=== PATIENT | female | born 1960 | race American Indian/Alaskan Native ===

== ENCOUNTER 2018-12-02 08:54 | Inpatient (IN) | payer OTHER ==
[2018-12-02 10:19] LABS: Basophils % (Auto) 1.2 % (0.0-1.8); Eosinophils % (Auto) 0.9 % (0.0-4.3); Hemoglobin 12.4 gm/dl (10.1-14.3); Lymphocytes # (Auto) 0.8 K/mm3 (1.2-5.4); Lymphocytes % (Auto) 22.4 % (13.4-35.0); Mean Corpuscular HGB Conc 34 % (30-34); Mean Corpuscular Volume 84 fl (79-97); Monocytes # (Auto) 0.3 K/mm3 (0.0-0.8); Monocytes % (Auto) 9.6 % (0.0-7.3); Platelet Count 169 K/mm3 (140-440); Red Blood Count 4.41 M/mm3 (3.65-5.03); Red Cell Distribution Width 13.4 % (13.2-15.2)
[2018-12-02] MEDS ORDERED: IBUPROFEN PO ONE (10:20)
--- NOTE | 2018-12-02 10:22 | XRay Report ---
AP CHEST: HISTORY: Hypertension, syncope AP view of the chest demonstrates a normal mediastinal and cardiac contour with clear lungs and normal bony and soft tissue structures. IMPRESSION: Unremarkable AP chest.
--- NOTE | 2018-12-02 10:26 | Emergency Department Report ---
ED Syncope HPI - General Chief Complaint: Syncope Stated Complaint: SYNCOPY/MH Time Seen by Provider: 12/02/18 08:58 - History of Present Illness Initial Comments: Mrs. Ramachandran is a 58 yo female with hx of HTN, NIDDM, and dyslipidemia who presents with a syncopal episode. 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. She was in the medical transport vehicle front seat. The special client bus driver observed the fainting episode after she sneezed. She passed out for several minutes with urinary incontinence. She does not remember the episode. No hx of syncope or seizure. No hx of cardiac disease. She reported the bi developer stated that her lower heart was beating fast. This morning she was in her normal state of health without illness. Now she has headache frontal. PCP Dr. Cinthia Blackwood Medictions: Metformin Lisinopril Hydrochlorothiazide Lipitor - Related Data Allergies/Adverse Reactions: Allergies No Known Allergies Allergy (Unverified 03/21/15 12:51) ED Review of Systems ROS: Stated complaint: SYNCOPY/MH Other details as noted in HPI Comment: All other systems reviewed and negative Constitutional: denies: fever, malaise Respiratory: denies: cough Cardiovascular: denies: chest pain, palpitations ED Past Medical Hx - Past Medical History Previous Medical History?: Yes Hx Hypertension: Yes Hx Diabetes: Yes Additional medical history: high cholesterol - Surgical History Hx Breast Surgery: Yes (partial hysterectomy/ lump removal) - Family History Family history: diabetes, other (family history of heart disease) - Social History Smoking Status: Current Every Day Smoker Substance Use Type: Alcohol ED Physical Exam - General Limitations: No Limitations General appearance: alert, in no apparent distress - Head Head exam: Present: atraumatic, normocephalic - Eye Eye exam: Present: normal appearance - ENT ENT exam: Present: mucous membranes moist - Neck Neck exam: Present: normal inspection, full ROM - Respiratory Respiratory exam: Present: normal lung sounds bilaterally. Absent: respiratory distress, wheezes, rales, rhonchi - Cardiovascular Cardiovascular Exam: Present: regular rate, normal rhythm, normal heart sounds. Absent: systolic murmur, diastolic murmur, rubs, gallop - GI/Abdominal GI/Abdominal exam: Present: soft, normal bowel sounds. Absent: distended, tenderness - Extremities Exam Extremities exam: Present: normal inspection - Back Exam Back exam: Present: normal inspection - Neurological Exam Neurological exam: Present: alert, oriented X3, CN II-XII intact, normal gait. Absent: motor sensory deficit - Psychiatric Psychiatric exam: Present: normal affect, normal mood - Skin Skin exam: Present: warm, dry, intact, normal color. Absent: rash ED Course Vital Signs 12/02/18 12/02/18 12/02/18 09:03 09:04 09:05 Temperature 98.7 F Pulse Rate 75 Blood Pressure 143/81 O2 Sat by Pulse 99 99 Oximetry ED Medical Decision Making - Lab Data Result diagrams: 12/02/18 10:04 12/02/18 10:04 Laboratory Results - last 24 hr 12/02/18 12/02/18 12/02/18 10:04 10:04 10:04 WBC 3.4 L RBC 4.41 Hgb 12.4 Hct 37.0 MCV 84 MCH 28 MCHC 34 RDW 13.4 Plt Count 169 Lymph % (Auto) 22.4 [place] % (Auto) 9.6 H Eos % (Auto) 0.9 Baso % (Auto) 1.2 Lymph # 0.8 L [place] # 0.3 Eos # 0.0 Baso # 0.0 Seg Neutrophils % 65.9 Seg Neutrophils # 2.2 D-Dimer 162.00 Sodium 140 Potassium 3.9 Chloride 102.4 Carbon Dioxide 27 Anion Gap 15 BUN 7 Creatinine 0.7 Estimated GFR > 60 BUN/Creatinine Ratio 10 Glucose 77 Calcium 9.3 Magnesium 2.20 Total Bilirubin 0.30 AST 22 ALT 16 Alkaline Phosphatase 46 Troponin T < 0.010 Total Protein 7.1 Albumin 4.2 Albumin/Globulin Ratio 1.4 - EKG Data EKG shows normal: sinus rhythm, axis, intervals, QRS complexes, ST-T waves Rate: normal - Radiology Data Radiology results: report reviewed CXR: one view NAP - Medical Decision Making Mrs. Ramachandran is a 58 yo female with witnessed syncope and urinary incontinence. DDX: arrhythmia, seizure, vasovagal syndrome Negative d-dimer, normal EKG, normal Hct Admitted to hospitalist service for further treatment and evaluation Critical care attestation.: If time is entered above; I have spent that time in minutes in the direct care of this critically ill patient, excluding procedure time. ED Disposition Clinical Impression: Syncope Disposition: OP ADMIT IP TO THIS HOSP Is pt being admited?: Yes Does the pt Need Aspirin: Yes Condition: Stable Instructions: Syncope (ED)
[2018-12-02 10:33] LABS: Alanine Aminotransferase 16 units/L (7-56); Albumin 4.2 g/dL (3.9-5); BUN/Creatinine Ratio 10; Blood Urea Nitrogen 7 mg/dL (7-17); Calcium 9.3 mg/dL (8.4-10.2); Hemolysis Index 12
[2018-12-02] MEDS ORDERED: BABY ASPIRIN PO ONE (12:58)
--- NOTE | 2018-12-02 13:25 | History and Physical Report ---
History of Present Illness Chief complaint: I just passed out History of present illness: 58 YO Female with HTN, DM, HLD, Nicotine Dependence presents to ED for evaluation. Pt states that she was in her usual state of health while at work. Pt was in a medical transport vehicle as a passenger when she suddenly lost con sciousness. The regional driver/witness reports that patient lost consciousness after she sneezed and was out for several minutes with loss of urinary incontinence. Pt does not remember the episode. EMS notified, and patient transported to [facility]. Pt seen and evaluated in ED and found to have Syncope, as well as symptoms consistent with Diastolic CHF. Pt acknowledges decreased exercise tolerance, and shortness of breath with exertion over the past 2 months, and well as family history of cardiac disease. Pt admitted to telemetry. Pt denies fever, chills, CP, Palpitations, NVD, Trauma, Prolonged travel/immobility, Individual/family history of DVT/PE/Blood Clotting Disorders, Vertigo, Skin Rash, or recent ill contacts. Pt has no prior inpatient admissions at [facility]. All listed medication reconciled at admission. PCP Dr. Cinthia Blackwood Past History Past Medical History: diabetes, hypertension, hyperlipidemia Past Surgical History: hysterectomy Social history: , lives with family, smoking Family history: CAD, hypertension Medications and Allergies Allergies Allergy/AdvReac Type Severity Reaction Status Date / Time No Known Allergies Allergy Unverified 03/21/15 12:51 Review of Systems Constitutional: no weight loss, no weight gain, no fever, no chills Ears, nose, mouth and throat: no ear pain, no ear discharge, no tinnitis, no decreased hearing, no nose pain Breasts: no change in shape, no swelling, no mass Cardiovascular: syncope, dyspnea on exertion, decreased exercise tolerance, no chest pain, no orthopnea, no palpitations, no rapid/irregular heart beat, no edema Respiratory: no cough, no cough with sputum, no excessive sputum, no hemoptysis Gastrointestinal: no nausea, no vomiting, no diarrhea, no constipation Genitourinary Female: no pelvic pain, no flank pain, no menorrhagia, no dysuria Rectal: no pain, no incontinence, no bleeding Musculoskeletal: no neck stiffness, no neck pain, no shooting arm pain, no arm numbness/tingling, no low back pain, no shooting leg pain Integumentary: no rash, no pruritis, no redness, no sores, no wounds Neurological: no transient paralysis, no paralysis, no weakness, no parathesias, no numbness, no lack of coordination Psychiatric: no anxiety, no memory loss, no change in sleep habits Endocrine: no cold intolerance, no heat intolerance, no polyphagia, no excessive thirst, no polydipsia, no polyuria Hematologic/Lymphatic: no easy bruising, no easy bleeding, no lymphedema Allergic/Immunologic: no urticaria, no allergic rhinitis, no wheezing, no anaphylaxis, no angioedema Exam - Constitutional Vitals: Temp Pulse Resp BP Pulse Ox 98.7 F 75 143/81 99 12/02/18 09:05 12/02/18 09:05 12/02/18 09:04 12/02/18 09:04 General appearance: Present: no acute distress, well-nourished - EENT Eyes: Present: PERRL ENT: hearing intact, clear oral mucosa - Neck Neck: Present: supple, normal ROM - Respiratory Respiratory effort: normal Respiratory: bilateral: CTA - Cardiovascular Heart Sounds: Present: S1 & S2. Absent: rub, click - Extremities Extremities: pulses symmetrical, No edema Peripheral Pulses: within normal limits - Abdominal General gastrointestinal: Present: soft, non-tender, non-distended, normal bowel sounds Female genitourinary: Present: normal - Integumentary Integumentary: Present: clear, warm, dry - Musculoskeletal Musculoskeletal: gait normal, strength equal bilaterally - Psychiatric Psychiatric: appropriate mood/affect, intact judgment & insight - Neurologic Neurologic: CNII-XII intact, moves all extremities Results - Labs CBC & Chem 7: 12/02/18 10:04 12/02/18 10:04 Labs: Abnormal lab results 12/02/18 Range/Units 10:04 WBC 3.4 L (4.5-11.0) K/mm3 [place] % (Auto) 9.6 H (0.0-7.3) % Lymph # 0.8 L (1.2-5.4) K/mm3 Assessment and Plan - Patient Problems (1) Diastolic CHF Current Visit: Yes Status: Suspected Qualifiers: Heart failure chronicity: acute Qualified Code(s): I50.31 - Acute diastolic (congestive) heart failure Plan to address problem: Admit to telemetry: Cardiac enzymes, serial EKG, strict I/O, daily weight, monitor uop q shift, telemetry monitoring to evaluate for arrhythmia or evidence of sick sinus syndrome, BNP, D dimer to assess for possible PE, Echo ordered to evaluate for suspected CHF/Cardiomyopathy. Echo is pending. (2) HTN (hypertension) Current Visit: Yes Status: Acute Qualifiers: Hypertension type: essential hypertension Qualified Code(s): I10 - Essential (primary) hypertension Plan to address problem: Monitor bp q shift, continue medical management. (3) HLD (hyperlipidemia) Current Visit: Yes Status: Acute Qualifiers: Hyperlipidemia type: mixed hyperlipidemia Qualified Code(s): E78.2 - Mixed hyperlipidemia Plan to address problem: lipid panel, statin therapy, (4) Diabetes Current Visit: Yes Status: Acute Plan to address problem: Discontinue oral antihyperglycemic medication, sliding scale insulin, ADA diet, accu check (5) Syncope Current Visit: Yes Status: Acute Qualifiers: Encounter type: initial encounter Plan to address problem: Admit to telemetry, Carotid doppler to evaluate for carotid stenosis, EEG to evaluate for evidence of new onset seizure. (6) DVT prophylaxis Current Visit: Yes Status: Acute Plan to address problem: SCD to BLE while in bed.
[2018-12-02] MEDS ORDERED: ZOFRAN IV PRN (13:27)
[2018-12-02] MEDS ORDERED: SODIUM CHLORIDE FLUSH SYRINGE 10 ML IV PRN (13:27)
[2018-12-02] MEDS ORDERED: TYLENOL PO PRN (13:27)
[2018-12-02] MEDS ORDERED: D50W (25GM) Syringe IV PRN (14:11)
[2018-12-02] MEDS ORDERED: APRESOLINE IV PRN (14:11)
--- NOTE | 2018-12-02 15:41 | Vascular Lab Report ---
PROCEDURE: VL CAROTID DUPLEX BILAT TECHNIQUE: Duplex Doppler ultrasound of the common, internal and external carotid arteries and the v ertebral arteries was performed bilaterally. Lewis scale imaging, velocity spectral waveform analysis, and color flow Doppler were employed. HISTORY: syncope COMPARISONS: None . Note: Measurement of carotid stenosis is based on flow velocity values that correlate with the [place] Symptomatic Carotid Endarterectomy Trial (NASCET) based stenosis criteria using the internal carotid artery diameter as the denominator for stenosis calculation. FINDINGS: RIGHT carotid artery: Velocities: ICA PSV: 106 cm/sec ICA End diastolic: 38 cm/sec CCA PSV: 160 cm/sec IC/CC ratio: 0. 66 Plaque/color flow: Mild heterogeneous plaque without significant spectral broadening or abnormal col or flow . RIGHT vertebral artery: Antegrade systolic and diastolic flow LEFT carotid artery: Velocities: ICA PSV: 101 cm/sec ICA End diastolic: 32 cm/sec CCA PSV: 125 cm/sec IC/CC ratio: 0. 81 Plaque/color flow: Mild heterogeneous plaque without significant spectral broadening or abnormal col or flow . LEFT vertebral artery: Antegrade systolic and diastolic flow IMPRESSION: 1. RIGHT carotid: No hemodynamically significant (less than 50 percent) internal carotid artery ana nosis. 2. LEFT carotid: No hemodynamically significant (less than 50 percent) internal carotid artery sten osis. 3. Vertebral arteries: Bilaterally antegrade. This document is electronically signed by Rima Hooper., December 02 2018 03:38:52 PM ET
[2018-12-02] MEDS: HumaLOG SUB-Q SCH (18:45)
[2018-12-02] MEDS ORDERED: HCTZ PO SCH (19:00)
[2018-12-02] MEDS ORDERED: ZESTRIL PO SCH (19:00)
[2018-12-02] MEDS ORDERED: SODIUM CHLORIDE FLUSH SYRINGE 10 ML IV SCH (22:00)
[2018-12-03 06:21] LABS: BUN/Creatinine Ratio 17; Blood Urea Nitrogen 12 mg/dL (7-17); Hemolysis Index 4
[2018-12-03] MEDS: HumaLOG SUB-Q SCH (09:50)
[2018-12-03] MEDS ORDERED: CLARITIN PO SCH (10:00)
[2018-12-03] MEDS ORDERED: HALFPRIN EC PO SCH (10:00)
[2018-12-03] MEDS ORDERED: NON-FORMULARY (Lisinopril/Hydrochlorothiazide [Zestoretic 10-12.5 Mg Tablet] 1 EACH) PO SCH (10:00)
[2018-12-03] MEDS ORDERED: VITAMIN D3 PO SCH (10:00)
[2018-12-03] MEDS ORDERED: KRILL OIL 500 MG PO SCH (10:00)
[2018-12-03] MEDS ORDERED: ZESTRIL PO SCH (10:00)
[2018-12-03] MEDS ORDERED: HCTZ PO SCH (10:00)
[2018-12-03 16:39] VITALS: BP 130/75
--- NOTE | 2018-12-03 16:44 | Cat Scan Report ---
PROCEDURE: CT head without contrast. TECHNIQUE: Computerized tomography of the head was performed without contrast material. CT DOSE LENGTH PRODUCT: 805.42 mGycm HISTORY: Syncope. COMPARISONS: None. FINDINGS: The ventricles are normal in size. The veras matter and white matter appear normal. There are no mass lesions. There is no intracranial hemorrhage. The calvarium appears intact. The mastoid air cells and visualized paranasal sinuses are well aerated. IMPRESSION: Normal study. This document is electronically signed by Bari Pena MD., December 03 2018 04:41:39 PM ET
--- NOTE | 2018-12-03 17:25 | Discharge Summary ---
Providers - Providers Date of Admission: 12/02/18 13:27 Date of discharge: 12/03/18 Attending physician: DANIELE PULLIAM 12/03/18 14:26 Consult to Physician [CONS] Routine Comment: Consulting Provider: NAREN MATA Physician Instructions: Reason For Exam: syncope vs seizure Primary care physician: ABUNDIO FELDMAN Hospitalization Condition: Stable Pertinent studies: Carotid doppler CT head 2d echo EEG CXR Hospital course: 58 YO Female with HTN, DM, HLD presented to ED for evaluation of syncope vs s eizute with loss of bladder control. Pt stated that she was in a medical transport vehicle as a passenger when she suddenly lost consciousness. The jeep driver/witness reports that patient lost consciousness after she sneezed and was out for several minutes with loss of urinary incontinence. Pt does not remember the episode. EMS notified, and patient transported to [facility]. Pt seen and evaluated in ED and admitted for further evaluation. Discharge diagnosis and management; / Syncope vs seizure Normal EEG, CT head, carotod doppler, preserved EF on 2d echo evaluated by neuro, advised not to drive for 6 months / HTN (hypertension) continue outpt medication / HLD (hyperlipidemia) s/p lipid panel, statin therapy, / Diabetes hold oral hypoglycemin medications, advised to do dietary control /Nicotine abuse, counseled for cessation / DVT prophylaxis SCD to BLE while in bed. Disposition: DC-01 TO HOME OR SELFCARE Time spent for discharge: 34 minutes Core Measure Documentation - Palliative Care Palliative Care/ Comfort Measures: Not Applicable - Core Measures Any of the following diagnoses?: none Exam - Constitutional Vitals: Temp Pulse Resp BP Pulse Ox 97.9 F 79 16 130/75 98 12/03/18 11:30 12/03/18 16:35 12/03/18 11:30 12/03/18 16:35 12/03/18 16:35 General appearance: Present: no acute distress, well-nourished - EENT Eyes: Present: PERRL ENT: hearing intact, clear oral mucosa - Neck Neck: Present: supple, normal ROM - Respiratory Respiratory effort: normal Respiratory: bilateral: CTA - Cardiovascular Heart Sounds: Present: S1 & S2. Absent: rub, click - Extremities Extremities: pulses symmetrical, No edema Peripheral Pulses: within normal limits - Abdominal General gastrointestinal: Present: soft, non-tender, non-distended, normal bowel sounds - Integumentary Integumentary: Present: clear, warm, dry - Musculoskeletal Musculoskeletal: gait normal, strength equal bilaterally - Psychiatric Psychiatric: appropriate mood/affect, intact judgment & insight - Neurologic Neurologic: CNII-XII intact, moves all extremities Plan Activity: advance as tolerated, no driving until cleared by PCP, fall precautions Weight Bearing Status: Weight Bear as Tolerated Diet: low fat, diabetic Additional Instructions: No driving for 6 months. Brain MRI outpt. Holter monitoring outpt Follow up with: ABUNDIO FELDMAN MD [Primary Care Provider] - 7 Days
--- NOTE | 2018-12-03 19:22 | Electroencephalogram Report ---
Electroencephalogram EEG Date of exam: 12/03/18 History: Syncope triggered by sneezing twice and preceded by queasiness, with incontinence of urine Description: Findings: This is a 19 channel (including 1 channel of EKG) digital electroencephalogram performed during wakefulness and brief sleep in this 20 minute recording using the 10/20 international montage. There is 10 Hz alpha activity in the posterior leads and some anterior beta activity. There is an artifact in electrode T3 is verified by the gear technician. With drowsiness, theta frequencies appear and later sleep spindles and K complexes not quite achieving stage II of sleep. No epileptiform activity was seen. Interpretation: Interpretation: Normal waking and brief sleep electroencephalogram for age. This EEG does not exclude epilepsy of partial onset. Up to 4 EEGs over several months may be needed to capture interictal epileptiform activity.
--- NOTE | 2018-12-03 20:02 | Consultation ---
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 She was told she sneezed twice and then blacked out and had bladder incontinence. She felt back to normal promptly without headache. She never had a similar episode. She said fingerstick glucose was checked by her coworker and was 139 and blood pressure was 140/80. Past medical history: Medical illnesses: Diabetes, hypertension, never seizures as a child or later Medications: Lisinopril-HCTZ 10 mg-12.5 mg, metformin 500 mg, Lipitor 40 mg, Claritin 10 mg, aspirin 81 mg, vitamin D3 2000 units, Krill oil 350 mg daily Surgeries: Partial hysterectomy, right breast lump removal (benign) Social history: , no children, smokes half a pack per day of cigarettes, drinks a sixpack of beer per day and occasional hard liquor (told her the rule for women is not to drink more than one drink per 24 hours since more causes strokes and heart attacks), marijuana many years ago, works as a SOFTWARE TECHNICAL LEAD full-time. Family history: Mother of stroke at age 52 and she thinks had hypertension. No brain aneurysms in the family. Sister had a brain tumor. Hypertension in her mother and 2 brothers. Diabetes in 2 brothers. No epilepsy in the family. 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 Only 4 hour sleep the night before this episode. General Appearance: well developed but borderline overweight (per BMI) late 50s -[place] female in [facility]. HEENT: atraumatic, normocephalic; no bruits, 2+ Basil without soreness or induration or enlargement, sclerae nonicteric. Oropharynx pink and moist. Neck: supple, no bruits. Heart: no murmur or extra sounds. Extremities: no clubbing, cyanosis or edema. 2+ dorsalis pedis pulses bilaterally. Neurologic Exam: Mental Status: Awake, alert, oriented X 3, speech is clear, names pen and point of pen, and abstracts well. Names President but not Supervisor [employer], serial 7's intact, no right-left confusion, gets 1 of 3 objects at 3 minutes, spells WORLD backwards correctly. Cranial Nerves: nash full, no papilledema, SVPs present, PERRLA, EOMs full without nystagmus or diplopia, facial sensation intact to pinprick and light touch, no facial weakness, Kowalski is midline, palate rises symmetrically to phonation but is crowded, shoulder shrug is 5 X 2, tongue protrudes midline. Cerebellar: finger to nose at endpoint on the right without tremor, tandem is quite wobbly but not wide based. Sensory: intact to light touch, pinprick is decreased over the palms but intact over the dorsal tips of the fingers and is intact in the lower extremities, intact vibrations. Double simultaneous stimulation is intact. Motor Exam Upper Extremities: no drift or pronation, Sowmya intact. Retail Bakery Manager are 5 X 2, tone is normal. No atrophy or fasciculations are noted visually. Motor Exam Lower Extremities: walks well on heels and toes and hops equally on both sides. Sowmya intact. Tone is normal. No atrophy or fasciculations are noted visually. Says she had a right foot drop in 2013 but never used an AFO s plint. Reflexes: Palmomental, snout and jaw jerk are negative. Triceps are 1 right and trace left, biceps and brachioradialis are trace bilaterally. Keri's is negative bilaterally. Knee jerks are 0 bilaterally becoming trace in the right and remaining 0 on the left with reinforcement, and ankle jerks are 0 right even with reinforcement and trace left with slight slowing of the relaxation phase and without clonus. Toes are downgoing bilaterally to Babinski testing. Past History Past Medical History: diabetes, hypertension, hyperlipidemia Past Surgical History: hysterectomy Social history: , lives with family, smoking Family history: CAD, hypertension Medications and Allergies Allergies Allergy/AdvReac Type Severity Reaction Status Date / Time No Known Allergies Allergy Unverified 03/21/15 12:51 Home Medications Medication Instructions Recorded Confirmed Last Taken Type Aspirin [Adult Aspirin] 81 mg PO DAILY 12/02/18 12/02/18 12/01/18 History Atorvastatin Calcium [Lipitor] 40 mg PO DAILY 12/02/18 12/02/18 12/01/18 History Ergocalciferol (Vitamin D2) 2,000 unit PO DAILY 12/02/18 12/02/18 12/01/18 History [Vitamin D2] Krill Oil 500 mg PO DAILY 12/02/18 12/02/18 12/01/18 History Lisinopril/Hydrochlorothiazide 1 each PO QDAY 12/02/18 12/02/18 12/01/18 History [Zestoretic 10-12.5 mg Tablet] Loratadine [Claritin] 10 mg PO DAILY 12/02/18 12/02/18 12/01/18 History Physical Examination - Vital Signs Vital Signs: Vital Signs Pulse Ox 99 12/02/18 09:03 Results - Laboratory Findings CBC and BMP: 12/02/18 10:04 12/03/18 04:52 Abnormal Lab Findings: Abnormal Labs 12/02/18 12/03/18 10:04 04:52 WBC 3.4 L [place] % (Auto) 9.6 H Lymph # 0.8 L Sodium 147 H Chloride 107.1 H Assessment and Plan Impression: 1. Syncope with likely seizure Plan: 1. EEG done, normal but this is a small snapshot in time and does not exclude epilepsy of partial onset. 2. Should have a brain MRI as an outpatient. 3. Dr. Pulliam has ordered a Holter as an outpatient. 4. I explained that even without the loss of control of urine, by [place] law, any one with a blackout cannot drive for 6 months straight with no further blackouts. She claims she has to drive for work. She is told if she is caught driving, she would be subject to arrest. 5. I explained the only exception to the six-month rule might be if something is found on Holter that explains her syncope, and that could then be treated. 6. Sleep apnea testing should also be considered. Sleep apnea however would not explain this episode. 55 minutes spent including discussion of need to not drive. Dr. Pulliam told her in my presence that she needs to get Uber to take her to work. Thank you for an interesting consultation in my area of subspecialty.
== END 2018-12-03 18:55 | disposition home or self-care (01) | DRG 100 ==
LOC: ED 08:54 → 4A 13:27
PROVIDERS: ADMIT Internal Medicine; ATTEND Internal Medicine
DX: R56.9 Unspecified convulsions (principal); I50.31 Acute diastolic (congestive) heart failure; R55 Syncope and collapse; I11.0 Hypertensive heart disease with heart failure; E11.9 Type 2 diabetes mellitus without complications; E78.2 Mixed hyperlipidemia; F17.210 Nicotine dependence, cigarettes, uncomplicated; Z71.6 Tobacco abuse counseling; Z90.710 Acquired absence of both cervix and uterus; Z82.49 Family history of ischemic heart disease and other diseases of the circulatory system; Z72.89 Other problems related to lifestyle; Z79.82 Long term (current) use of aspirin; Z79.899 Other long term (current) drug therapy
CPT/HCPCS: 36415; 70450; 71045; 80048; 80053; 83036; 83735; 83880; 84484; 85025; 85379; 93005; 93010; 93306; 93880; 95819; G0378; A9270-GY